=== PATIENT | male | born 1995 | race Caucasian/White ===

== ENCOUNTER 2022-02-12 12:41 | Outpatient (CLI) | payer OTHER, SELFPAY ==
[2022-02-12 22:59] LABS: Hepatitis B Surface Antibody* Negative (Negative)
[2022-02-14 16:10] LABS: Varicella-Zoster Virus Ab, IgG 494.1 IV
[2022-02-14 16:15] LABS: Rubella Antibody IgG 24.4 IU/mL
== END 2022-02-12 12:42 | disposition home or self-care (01) ==
PROVIDERS: PCP Physician Assistant Medical; Visit Provider Physician Assistant Medical
DX: Z00.00 Encounter for general adult medical examination without abnormal findings (principal); Z01.84 Encounter for antibody response examination; Z11.1 Encounter for screening for respiratory tuberculosis
CPT/HCPCS: 86480; 86706; 86735; 86762; 86765; 86787

== ENCOUNTER 2023-08-08 09:10 | Outpatient (CLI) | payer OTHER, SELFPAY | END 2023-08-08 09:11 | disposition home or self-care (01) | PROVIDERS: PCP Physician Assistant Medical; Visit Provider Physician Assistant Medical | DX: R19.7 Diarrhea, unspecified (principal); Z13.228 Encounter for screening for other metabolic disorders; Z13.29 Encounter for screening for other suspected endocrine disorder | CPT/HCPCS: 80053; 84443 ==

== ENCOUNTER 2023-12-26 16:29 | Outpatient (CLI) | payer OTHER, SELFPAY ==
--- NOTE | 2023-12-26 16:30 | CRLHL7_ITS ---
For Patients: As a result of the Century Cures Act, medical imaging exams and procedure reports are released immediately into your electronic medical record. You may view this report before your referring provider. If you have questions, please contact your health care provider. INDICATION: Lt testicle lump COMPARISON: none TECHNIQUE: Leung scale imaging was performed of the scrotum. In addition color Doppler and spectral Doppler analysis was performed of the testes. FINDINGS: The testes demonstrate normal arterial and venous blood flow on color Doppler and spectral Doppler analysis. The testes have uniform echogenicity with no evidence of a suspicious mass or area of inflammation. The right testis measures 4.9 x 2.6 x 2.9 cm in size and the left testis measures 4.8 x 2.1 x 2.9 cm. Left epididymal cyst is present measuring 1.8 x 1.2 x 1.5 cm. Normal right epididymis. There is no evidence of a hydrocele or varicocele. IMPRESSION: Simple left epididymal cyst measures 1.8 cm. Normal testicles. Dictated by Mike He MD @ 12/27/2023 9:10:45 AM (Electronically Signed)
== END 2023-12-26 16:30 | disposition home or self-care (01) ==
LOC: US 16:29
PROVIDERS: PCP Physician Assistant Medical; Visit Provider Nurse Practitioner Family
DX: N50.89 Other specified disorders of the male genital organs (principal); L72.0 Epidermal cyst
CPT/HCPCS: 76870; 93976

== ENCOUNTER 2024-10-10 08:29 | Outpatient (CLI) | payer BC, SELFPAY ==
[2024-10-10 13:50] LABS: Albumin* 4.8 g/dL (3.3-5.0)
[2024-10-10 13:53] LABS: Alanine Aminotransferase* 24 U/L (4-50); Alkaline Phosphatase* 63 U/L (40-150); Aspartate Amino Transferase* 27 U/L (12-35); Bilirubin Direct* 0.4 mg/dL (0.0-0.5); Bilirubin Total* 1.2 mg/dL (0.1-1.5); Cholesterol* 262 mg/dL (90-199); Triglycerides* 235 mg/dL (40-149)
[2024-10-10 13:54] LABS: HDL Cholesterol* 46 mg/dL (>=40); LDL Cholesterol Calculated 169 mg/dL (<100)
== END 2024-10-10 08:30 | disposition home or self-care (01) ==
LOC: NPINS 08:30
PROVIDERS: PCP Physician Assistant Medical; Visit Provider Nurse Practitioner Family
DX: L70.0 Acne vulgaris (principal); Z79.899 Other long term (current) drug therapy; Z13.6 Encounter for screening for cardiovascular disorders
CPT/HCPCS: 80061; 80076

== ENCOUNTER 2024-11-19 12:44 | Outpatient (CLI) | payer BC, SELFPAY ==
[2024-11-16 13:17] LABS: Albumin* 4.5 g/dL (3.3-5.0)
[2024-11-16 13:20] LABS: Alanine Aminotransferase* 25 U/L (4-50); Alkaline Phosphatase* 75 U/L (40-150); Aspartate Amino Transferase* 30 U/L (12-35); Bilirubin Direct* 0.4 mg/dL (0.0-0.5); Bilirubin Total* 0.9 mg/dL (0.1-1.5); Cholesterol* 217 mg/dL (90-199); HDL Cholesterol* 41 mg/dL (>=40); LDL Cholesterol Calculated 134 mg/dL (<100); Total Protein* 7.4 g/dL (6.0-8.3); Triglycerides* 208 mg/dL (40-149)
--- OUTSIDE RECORDS SUMMARY | 2024-11-20 02:23 | XMS_ITS | Clinical Summary ---
Author Organization [facility] Address [address] [place] [id number] Care Team Providers Care Water Pollution Control Inspector Name Role Phone Pcp, No Primary Care Provider Unavailabl e Allergies No known active allergies Medications predniSONE (DELTASONE) 20 mg tabletIndication s:Bronchitis,Cou gh Take 1 Tablet (20 mg) by mouth once daily. Take 3 tabs daily with food for 2 days, then 2 tabs daily for 2 days, and then 1 tab daily for 2 days. 12 Tablet 09/09/2021 Active rx codeine-guaFENes in, 10-100 mg/5 ml, (ROBITUSSIN AC) liquid (ED DC MED)Indications: Cough Take 5 mL by mouth every 4 hours if needed (cough). 80 mL 09/09/2021 Active Active Problems No known active problems Immunizations Immunization Administration Dates Next Due DTaP 10/24/2000 Hepatitis A (Peds) 07/24/2010,12/26/2006 Human Papilloma Virus Vaccine 09/12/2013, 014 Inactivated Polio Vaccine 10/24/2000 MMR 10/24/2000 Meningococcal B 06/02/2016 Td (Age >=7 Years) 12/11/2015 Typhoid (injectable) 11/21/2018 Family History Medical History Relation Name Comments Hyperlipidemia Father Heart Disease Maternal Grandmother Has a pacemaker No Known Problems Mother Anesthesia Problem No Family History Blood Disease No Family History Clotting disorder No Family History Relation Name Status Comments Father Maternal Grandmother Mother Social History Tobacco Use Types Packs/Day Years Used Date Smoking Tobacco: Some Days Cigars Smokeless Tobacco: Never Tobacco Cessation:Ready to Q uit: Yes; Counseling Given: Yes Comments:Cigar once a month if that Alcohol Use Standard Drinks/Week Comments Yes 0 (1 standard drink = 0.6 oz pur e alcohol) Social Connections Answer Date Recorded Frequency of Communication with Friends and Fami ly Not on file 05/23/2021 Financial Resource Strain Answer Date R ecorded Difficulty of Paying Living Expenses Not on file 05/23/2021 Difficulty of Paying Living Expenses Not on file 05/23/2021 Sex and Gender Information Value Date Recorded Sex Assigned at Not on file Legal Sex Male 4:38 PM CDT Gender Identity Not on file Sexual Orientation Not on file 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 Not on file Not on file Obstetrics History Last Filed Vital Signs Vital Sign Reading Time Taken Comments Blood Pressure 110/78 09/09/2021 11:44 AM CDT Pulse 80 09/09/2021 11:44 AM CDT Temperature 37 C (98.6 F) 09/09/2021 11:44 AM CDT Respiratory Rate 18 05/01/2021 12:00 PM FRAMER Oxygen Saturation 98% 09/09/2021 11:44 AM CDT Inhaled Oxygen Concentration - - Weight 93.9 kg (207 lb) 09/09/2021 11:44 AM CDT Height 188 cm (6' 2) 05/01/2021 10:05 AM FRAMER Body Mass Index 26.58 05/01/2021 10:05 AM FRAMER Plan of Treatment Health Maintenance Due Date Last Done Comments Tdap 2006 Depression screening for age 12+ 2007 HIV for age 15-65 2010 Hepatitis B series for 19+ ( 1 of 3 - 19+ 3-dose series) 2014 BMI (ht and wt on same day) for age 18+ 04/30/2022 04/30/2021, 03/11/2020 COVID-19 vaccine series ( season) 2024 06/24/2021, 10/16/2020, 09/18/2020 Influenza Vaccine (Season Ended) 2025 Tetanus booster 12/10/2025 12/11/2015 Hepatitis C screening for ag e 18-79 Completed 04/30/2021, 04/30/2021 Pneumococcal series for age 6-49 Aged Out No longer eligible b ased on patient's age to complete this topic Procedures Procedure Name Priority Date/Time Associated Diagnosis Comments ANTI HCV Routine 04/30/2021 4:33 PM FRAMER Hepatitis C test positive from Last 3 Months or Most Recently Relevant to Health Maintenance Results * ANTI HCV (04/30/2021 4:33 PM FRAMER) HEPATITIS C ANTIBODY Non-React betty Non-React betty 05/01/2021 5:04 PM FRAMER [facility] Comment:Antibodies to HCV no t detected; does not exclude the possibility of exposure to HCV. Blood BLOOD SPECIMEN / Unknown Venipuncture / Unknown 04/30/2021 4:33 PM FRAMER 04/30/2021 4:33 PM FRAMER us Patria Zamorano MD SEND OUTS Final R esult [facility] [address] [place] [address], [place] from Last 3 Months or Most Recently Relevant to Health Maintenance Care Teams Water Pollution Control Inspector Relationship Specialty Start Date End Date Pcp, No . PCP - General 03/10/20
--- OUTSIDE RECORDS SUMMARY | 2024-11-20 02:23 | XMS_ITS | Clinical Summary ---
Author Organization [facility] Address [address] [place] [id number] Care Team Providers Care Ballaster Name Role Phone Benji Rogerio GABRIEL Primary Care Provider Allergies No known active allergies Medications clindamycin (CLEOCIN T) 1 % external lotion Apply topically 2 times daily Active Active Problems Problem Noted Date Diagnosed Date Pilonidal cyst with abscess 03/25/2020 Immunizations Immunization Administration Dates Next Due DTAP (<7y) 10/24/2000 HPV Quadrivalent 09/12/2013,08/06/2013 Hepatitis A (Vaqta/Havrix)(Peds 12m-18y) 011,12/26/2006 MMR (MMRII) 10/24/2000 Meningococcal B (Bexsero ) 06/02/2016 Poliovirus, inactivated (IPV) 10/24/2000 Typhoid IM 11/21/2018 Social History Tobacco Use Types Packs/Day Years Used Date Smoking Tobacco: Never Smokeless Tobacco: Never Alcohol Use Standard Drinks/Week Comments Yes 0 (1 standard drink = 0.6 oz pur e alcohol) Adolescent Education Answer Date Record ed Getting School Help Needed Not on file 02/28 Sex and Gender Information Value Date Recorded Sex Assigned at Not on file Legal Sex Male 4:22 AM [employer]UT [employer] Gender Identity Not on file Sexual Orientation Not on file Last Filed Vital Signs Vital Sign Reading Time Taken Comments Blood Pressure 136/78 08/02/2024 8:00 PM CDT Pulse 90 08/02/2024 8:00 PM CDT Temperature 36.9 C (98.5 F) 08/02/2024 8:00 PM CDT Respiratory Rate 16 08/02/2024 8:00 PM CDT Oxygen Saturation 99% 08/02/2024 8:00 PM CDT Inhaled Oxygen Concentration - - Weight 95.3 kg (210 lb) 08/02/2024 7:14 PM CDT Height 190.5 cm (6' 3) 08/02/2024 7:14 PM CDT Body Mass Index 26.25 08/02/2024 7:14 PM CDT Plan of Treatment Health Maintenance Due Date Last Done Comments ADVANCE CARE PLANNING 1995 ANNUAL REVIEW OF HM ORDERS 1995 YEARLY PREVENTIVE VISIT 1998 HIV SCREENING 2010 HPV VACCINE (3 - Male 3-dose series) 02/06/2014 09/12/2013, 08/06/2013 HEPATITIS B VACCINE (1 of 3 - 19+ 3-dose series) 2014 DTAP/TDAP/TD VACCINE (3 - Tdap) 12/12/2015 12/11/2015, 10/24/2000 COVID-19 VACCINE (2023-2 5 season) 2024 PHQ-2 (once per calendar year) 2024 INFLUENZA VACCINE (Season Ended) 2025 ZOSTER VACCINE (1 of 2) 2045 HEPATITIS C SCREENING Completed 04/30/2021 MENINGITIS VACCINE Aged Out No longer eligible based on patient's age to complete this topic PNEUMOCOCCAL VACCINE: PEDIATRICS (0 to 5 YEARS) AND AT-RISK PATIENTS (6 to 49 YEARS) Aged Out No longer eligible b ased on patient's age to complete this topic Insurance [place] Care Teams Ballaster Relationship Specialty Start Date End Date Rogerio Leblanc PA-C [address] [place], [place] [id number] PCP - General 08/02/24
== END 2024-11-19 12:45 | disposition home or self-care (01) ==
LOC: NPINS 12:45
PROVIDERS: PCP Physician Assistant Medical; Visit Provider Nurse Practitioner Family
DX: L70.0 Acne vulgaris (principal)
CPT/HCPCS: 80061; 80076

== ENCOUNTER 2024-12-18 08:11 | Outpatient (CLI) | payer BC, SELFPAY ==
[2024-12-18 13:28] LABS: Albumin* 4.7 g/dL (3.3-5.0)
[2024-12-18 13:31] LABS: Alanine Aminotransferase* 24 U/L (4-50); Alkaline Phosphatase* 80 U/L (40-150); Aspartate Amino Transferase* 31 U/L (12-35); Bilirubin Direct* 0.3 mg/dL (0.0-0.5); Bilirubin Total* 0.7 mg/dL (0.1-1.5); Cholesterol* 285 mg/dL (90-199); HDL Cholesterol* 36 mg/dL (>=40); Total Protein* 7.7 g/dL (6.0-8.3)
[2024-12-18 13:49] LABS: Triglycerides* 610 mg/dL (40-149)
== END 2024-12-18 08:12 | disposition home or self-care (01) ==
LOC: NPINS 08:13
PROVIDERS: PCP Physician Assistant Medical; Visit Provider Nurse Practitioner Family
DX: L70.0 Acne vulgaris (principal)
CPT/HCPCS: 80061; 80076

== ENCOUNTER 2025-01-01 09:02 | Outpatient (CLI) | payer BC, SELFPAY ==
[2025-01-01 13:53] LABS: Albumin* 4.5 g/dL (3.3-5.0)
[2025-01-01 13:55] LABS: Cholesterol* 240 mg/dL (90-199)
[2025-01-01 13:56] LABS: Alanine Aminotransferase* 20 U/L (4-50); Alkaline Phosphatase* 68 U/L (40-150); Aspartate Amino Transferase* 29 U/L (12-35); Bilirubin Direct* 0.3 mg/dL (0.0-0.5); Bilirubin Total* 0.7 mg/dL (0.1-1.5); HDL Cholesterol* 41 mg/dL (>=40); Total Protein* 7.6 g/dL (6.0-8.3); Triglycerides* 379 mg/dL (40-149)
== END 2025-01-01 09:03 | disposition home or self-care (01) ==
LOC: NPINS 09:02
PROVIDERS: PCP Physician Assistant Medical; Visit Provider Nurse Practitioner Family
DX: L70.0 Acne vulgaris (principal); K13.0 Diseases of lips; R04.0 Epistaxis
CPT/HCPCS: 80061; 80076

== ENCOUNTER 2025-02-19 08:45 | Outpatient (CLI) | payer BC, SELFPAY ==
[2025-02-19 13:43] LABS: Albumin* 4.5 g/dL (3.3-5.0)
[2025-02-19 13:46] LABS: Alanine Aminotransferase* 18 U/L (4-50); Alkaline Phosphatase* 78 U/L (40-150); Aspartate Amino Transferase* 27 U/L (12-35); Bilirubin Direct* 0.4 mg/dL (0.0-0.5); Bilirubin Total* 0.6 mg/dL (0.1-1.5); HDL Cholesterol* 36 mg/dL (>=40); Total Protein* 7.5 g/dL (6.0-8.3)
[2025-02-19 13:53] LABS: Cholesterol* 195 mg/dL (90-199); Triglycerides* 386 mg/dL (40-149)
== END 2025-02-19 08:46 | disposition home or self-care (01) ==
LOC: NPINS 08:45
PROVIDERS: PCP Physician Assistant Medical; Visit Provider Nurse Practitioner Family
DX: L70.0 Acne vulgaris (principal); K13.0 Diseases of lips; R04.0 Epistaxis
CPT/HCPCS: 80061; 80076